=== PATIENT | female | born 1945 | race Caucasian/White ===

== ENCOUNTER 2016-09-06 10:16 | Emergency (ER) | payer MEDICARE ==
[2016-09-06] MEDS ORDERED: cefTRIAXone\\ROCEPHIN 1 GM VIAL ONE (11:08)
[2016-09-06] MEDS ORDERED: Sodium Chloride 0.9% 250 ML 250 ML ONE (11:09)
[2016-09-06] MEDS ORDERED: Azithromycin 500 MG VIAL ONE (11:09)
[2016-09-06] MEDS ORDERED: Sodium Chloride 0.9% 0 ML ONE (11:09)
[2016-09-06] MEDS ORDERED: Sodium Chloride 0.9% 100 ML ONE (11:10)
[2016-09-06 11:14] LABS: #Basophils 0.1 thou/uL (0.0-0.2); #Neutrophils 13.7 thou/uL (1.40-6.50); %Basophils 0.4 % (0.0-1.0); %Eosinophils 0.1 % (0.0-10.0); %Monocytes 5.8 % (0.0-10.0); Hematocrit 44.6 % (36.0-47.0); Red Blood Cell (RBC) Count 4.97 mill/uL (4.20-5.40); White Blood Cell (WBC) Count 16.8 thou/uL (4.8-10.8)
--- NOTE | 2016-09-06 11:16 | RAD ---
RADIOGRAPH CHEST 1 VIEW: Date: 09-06-16 Time: 10:46 a.m. HISTORY: 72-year-old female with acute dyspnea, worsening in the last two days. COMPARISON: None available. FINDINGS: There is increased attenuation involving the lower third to lower half of the right lung, especially laterally. Elsewhere, interstitial markings are diffusely prominent bilaterally. No cardiomegaly. No pneumothorax. Severe diffuse osteopenia. No mediastinal widening. Calcification of aortic ar ch. IMPRESSION: 1. Possible infiltrate in right lower lung zone. Recommend PA and lateral views for confirmation. 2. Diffuse severe osteopenia. 3. Atherosclerosis of thoracic aorta. JN POS: JUANJOSE
[2016-09-06 11:19] LABS: ALT (SGPT) 20 U/L (0-55); AST (SGOT) 24 U/L (5-34); Alkaline Phosphatase 119 U/L (40-150); Anion Gap 18 mmol/L (10-20); BUN (Urea Nitrogen) 13 mg/dL (9.8-20.1); Bilirubin, Total 0.4 mg/dL (0.2-1.2); CK (CPK) 113 U/L (29-168); Calc. Creatinine Clearance 0 mL/min (70-130); Calcium 9.4 mg/dL (7.8-10.44); Carbon Dioxide 22 mmol/L (23-31); Chloride 105 mmol/L (98-107); Estimated GFR-MDRD 80; Globulin 4.4 g/dL (2.4-3.5); Protein, Total 7.9 g/dL (5.8-8.1)
[2016-09-06 11:22] LABS: Troponin I 0.021 ng/mL (< 0.028)
[2016-09-06] MEDS ORDERED: Sodium Chloride 0.9% 1,000 ML ONE (11:26)
[2016-09-06] MEDS ORDERED: Potassium Chloride 10 MEQ/100 ML PREMIX BAG ONE (12:06)
[2016-09-06] MEDS ORDERED: Albuterol Sulfate 2.5 mg/0.5 ml Neb ONE (12:49)
--- NOTE | 2016-09-06 12:51 | CT ---
EXAM: CT ANGIOGRAM OF THE CHEST 09/06/16 HISTORY: Dyspnea on exertion. Low O2 saturation x2 to 3 days. History of breast cancer. COMPARISON: None TECHNIQUE: CT angiogram of the chest is performed in the axial plane. Sagittal and coronal reformatted images a s well as bilateral oblique three dimensional maximum intensity projections. FINDINGS: Limited evaluation of the lung parenchyma due to motion degradation. There are diffuse patchy ground glass opacities throughout the lung parenchyma. Focal linear opacification in the middle lobe likel y represents an area of subsegmental atelectasis or scar. No suspicious masses in the lung parenchym a. No pleural effusion or pneumothorax. Trachea and central bronchi are patent. The visualized upper abdominal solid organs are unremarkable. There is aneurysmal dilatation of an i ncompletely evaluated infrarenal abdominal aorta measuring 4.5 x 3.4 cm. There is focal outpouching along the lateral aspect of the aortic arch much distal to the left subclavian artery origin. There is adequate contrast opacification of the pulmonary arterial system to the level of the segmen aleena arteries. No filling defects to suggest thromboembolism. No mediastinal mass, lymphadenopathy or hematoma. Heart size is normal. No pericardial effusion. There are no osteoblastic or osteolytic lesions. Mild chronic compression fracture at L1 is suspecte d. IMPRESSION: 1. No evidence of pulmonary artery embolism to the level of the segmental arteries. Diffuse vicki und glass opacities throughout the lung parenchyma. Correlate for infectious, inflammatory process v ersus possible volume overload. 2. Scar or atelectasis in the middle lobe is favored. 3. Atherosclerosis and aneurysmal dilatation of the infrarenal abdominal aorta, incompletely ev aluated. Small focal outpouching of the aortic arch just beyond the left subclavian artery origins. Dedicated imaging of the aorta is recommended. POS: JUANJOSE
--- NOTE | 2016-09-06 13:29 | ERRECORD ---
[facility] EMERGENCY RECORD HPI SHORTNESS OF BREATH (10:36 JLOY) CHIEF COMPLAINT: Patient presents for evaluation of shortness of breath, Patient presents for evaluation of chest pain, Patient presents for evaluation of Pt with 1 week of shortness of breath. Also with chest pain on deep breaths. HISTORIAN: History provided by patient. LOCATION: Symptoms are generalized. QUALITY: Symptoms described as tightness. TIME COURSE: Gradual onset of symptoms, Symptoms are worsening, are constant. ASSOCIATED WITH: No associated chills, Associated with chest pain, Associated with diarrhea, Number of times: 1, Associated with dyspnea on exertion, No associated fever, No associated nausea, Associated with pleuritic chest pain, No associated upper respiratory infection, Associated with vomiting, Number of times: 1, for 3 days, currently resolved. EXACERBATED BY: Patient's condition exacerbated by nothing. RELIEVED BY: Patient's condition relieved by nothing. ROS CONSTITUTIONAL: Historian denies chills, denies fever. (10:37 JLOY) EYES: Historian denies eye pain, denies eye redness, denies eye discharge. (10:37 JLOY) ENT: Historian denies rhinorrhea, denies sore throat. (10:37 JLOY) CARDIOVASCULAR: Historian reports chest pain, reports dyspnea on exertion. (10:37 JLOY) RESPIRATORY: Historian denies cough, reports shortness of breath, denies sputum, denies wheezing. (10:37 JLOY) GI: Historian denies abdominal pain, reports diarrhea, denies nausea, reports vomiting. (10:37 JLOY) GENITOURINARY FEMALE: Historian denies dysuria, denies frequency, denies hematuria. (10:37 JLOY) MUSCULOSKELETAL: Historian denies back pain. (10:37 JLOY) SKIN: Historian denies rash, denies skin changes. (10:46 JLOY) NEUROLOGIC: Historian denies dizziness, denies headache. (10:37 JLOY) PAST MEDICAL HISTORY MEDICAL HISTORY: Notes: CVA x2, ovarian cancer (treated at [facility]), Past medical history includes history of hyperlipidemia, high cholesterol, Past medical history includes history of hypertension, which has been treated. (10:26 JNOL) PSYCHIATRIC HISTORY: No previous psychiatric history, no previous inpatient psychiatric admissions, no previous emergency department psychiatric evaluations, not currently under outpatient psychiatric treatment. (10:26 JNOL) &a-1R&a+25V*p+0X*i0610V*c202B*c15G*c2P*p-0X&a-25V&a+1R Name: Laurel Cruz : 1945 F71 MedRec: [id number] AcctNum: [id number] Prepared: SunSep 06, 2016 13:44 by Interface Page 1 of 4 pMD [facility] EMERGENCY RECORD SOCIAL HISTORY: Patient denies alcohol use, Patient denies drug use, Patient currently uses tobacco, Lives at home, with family. (10:26 JNOL) NOTES: Nursing records reviewed, Agree with nursing records. (10:38 JLOY) KNOWN ALLERGIES No Known Drug Allergies CURRENT MEDICATIONS pravastatin: TABLET : Strength - 10 mg : ORAL Patient Dose: unk mg Oral once a day. (10:27 JNOL) Plavix: TABLET : Strength - 300 mg : ORAL Patient Dose: unk mg Oral once a day. (10:28 JNOL) meTOPROLOL succinate: TABLET, EXTENDED RELEASE 24 HR : Strength - 100 mg : ORAL Patient Dose: unk mg Oral once a day. (10:28 JNOL) VITAL SIGNS VITAL SIGNS: BP: 160/90, Pulse: 105, Resp: 32 (Mild Distress), Pain: 0, O2 sat: 87 on Room Air, Time: 09/06/2016 10:22. (10:22 JNOL) O2 sat: 95 on 2 lpm, Time: 09/06/2016 10:26. (10:26 JNOL) Pulse: 95, Resp: 26, Pain: 0, O2 sat: 95 on 2L Oxygen, Time: 09/06/2016 10:28. (10:28 JNOL) BP: 114/77, Pulse: 94, Resp: 26, Temp: 98.3 (Oral), Pain: 2, O2 sat: 93 on 3L Oxygen, Time: 09/06/2016 11:05. (11:05 JNOL) BP: 132/78, Pulse: 97, Resp: 26, Pain: 2, O2 sat: 95 on 3L Oxygen, Time: 09/06/2016 11:34. (11:34 JNOL) BP: 166/77, Pulse: 86, Resp: 24, Pain: 2, O2 sat: 100 on Non Rebreather, Time: 09/06/2016 12:20. (12:20 JNOL) BP: 178/95, Pulse: 111, Resp: 25, Pain: 2, O2 sat: 94 on 3L Oxygen, Time: 09/06/2016 12:44. (12:44 JNOL) BP: 157/85, Pulse: 102, Resp: 26, Pain: 2, O2 sat: 98 on 3L Oxygen, Time: 09/06/2016 13:07. (13:07 JNOL) BP: 141/87, Pulse: 112, Resp: 26, Temp: 98.5 (Oral), Pain: 2, O2 sat: 93 on 3L Oxygen, Time: 09/06/2016 13:39. (13:39 JNOL) PHYSICAL EXAM (10:37 JLOY) CONSTITUTIONAL: Vital Signs Reviewed, Patient appears non toxic, Patient alert and oriented to person, place and time. EYES: Eye exam included findings of eyelids normal to inspection, Pupils equally round and reactive to light, Conjunctiva normal. ENT: Pharynx exam normal, Uvula exam normal, Tonsil exam normal, Mouth exam normal, mucous membranes moist. NECK: Neck exam included findings of normal range of motion, Trachea midline, no jugular venous distention, no cervical adenopathy. RESPIRATORY CHEST: Respiratory exam included findings &a-1R&a+25V*p+0X*n4583R*c202B*c15G*c2P*p-0X&a-25V&a+1R Name: Laurel Cruz : 1945 F71 MedRec: [id number] AcctNum: [id number] Prepared: SunSep 06, 2016 13:44 by Interface Page 2 of 4 pMD [facility] EMERGENCY RECORD of, mild respiratory distress, Rales present, to the right upper lobe, to the right middle lobe, to the right lower lobe, Breath sounds diminished, to the right upper lobe, to the right middle lobe, to the right lower lobe. CARDIOVASCULAR: Cardiovascular exam included findings of heart rate regular rate and rhythm, Heart sounds normal. ABDOMEN FEMALE: Abdominal exam included findings of abdomen nontender, Bowel sounds normal. BACK: Back exam included findings of normal inspection. UPPER EXTREMITY: Upper extremity exam included findings of inspection normal, Radial pulse normal, no cyanosis, no clubbing, no edema. LOWER EXTREMITY: Lower extremity exam included findings of inspection normal, no edema, no calf tenderness. NEURO: Figueroa coma scale 15, Neuro exam findings include patient oriented to person, place and time, Speech normal. SKIN: Skin exam included findings of skin warm, dry, and normal in color, no rash. PSYCHIATRIC: Normal affect. MEDICATION ADMINISTRATION SUMMARY Drug Name: albuterol sulfate inhalation, Dose Ordered: 2.5 mg, Route: Nebulize, Status: Given, Time: 12:52 09/06/2016, Drug Name: potassium chloride intravenous, Dose Ordered: 10 mEq, Route: IV Piggy Back, Status: Given, Time: 12:18 09/06/2016, Drug Name: azithromycin intravenous, Dose Ordered: 500 mg, Route: IV Piggy Back, Status: Given, Time: 11:48 09/06/2016, Drug Name: *sodium chloride 0.9 % intravenous, Dose Ordered: 150 mL/hr, Route: IV Fluid Infusion, Status: Given, Time: 11:33 09/06/2016, Drug Name: cefTRIAXone injection, Dose Ordered: 1 g, Route: IV Piggy Back, Status: Given, Time: 11:17 09/06/2016, Drug Name: *DuoNeb, Dose Ordered: 3 mL, Route: Nebulize, Status: Given, Time: 10:40 09/06/2016, *Additional information available in notes, Detailed record available in Medication Service section. DOCTOR NOTES RE-EVALUATION: The patient's condition is unchanged, No change s/p 2 breathing treatments. (13:23 [facility]) TEXT: Dr. Cheatham accepted the transfer to [facility] ER. (13:20 [facility]) PROBLEM LIST No recorded problems DIAGNOSIS (13:21 [facility]) FINAL: PRIMARY: Pneumonia, ADDITIONAL: Abdominal aortic aneurysm (AAA), Hypokalemia. &a-1R&a+25V*p+0X*w8717P*c202B*c15G*c2P*p-0X&a-25V&a+1R Name: Laurel Cruz : 1945 F71 MedRec: [id number] AcctNum: [id number] Prepared: SunSep 06, 2016 13:44 by Interface Page 3 of 4 pMD [facility] EMERGENCY RECORD PRESCRIPTION No recorded prescriptions DISPOSITION PATIENT: Disposition Type: Transfer, Disposition: Transfer to [facility]. (13:20 YAS) Patient left the department. (13:41 QUIQUE) Lee: YAS=MD Kobi, Rufus LEI=SHANE Roland, Randa &a-1R&a+25V*p+0X*[id number]*c202B*c15G*c2P*p-0X&a-25V&a+1R Name: Nancy Laurel : 1945 F71 MedRec: [id number] AcctNum: [id number] Prepared: SunSep 06, 2016 13:44 by Interface Page 4 of 4 pMD MTDD
--- NOTE | 2016-09-06 13:33 | PICIS ---
[facility] EMERGENCY RECORD TRIAGE (10:23 JNOL) TRIAGE NOTES: Patient reports increased difficulty breathing over last several days. (10:23 JNOL) PATIENT: NAME: Laurel Cruz, GENDER: female, TIME OF GREET: SunSep 06, 2016 10:21, ECODE BILLING MAP: [facility], Zip Code: [address], KG WEIGHT: 58.97 (est.), PHONE: , , , PERSON ID: [id number]. (10:23 JNOL) AGE: 71, : Sun1945. (11:27) COMPLAINT: DIFFICULTY BREATHING. (10:23 JNOL) ADMISSION: URGENCY: 2 Emergent, ADMISSION SOURCE: Home, TRANSPORT: Walk-in, BED: ER -02. (10:23 JNOL) SIRS SCORING: Heart Rate 55-109 (0), Temp range 96.8-101.1 (0), respiratory rate 12-24 (0), Mental Status altered: no (0). (10:26 JNOL) TRIAGE SCREENING: Patient denies suicidal ideation, Patient denies presence of domestic violence. (10:26 JNOL) PROVIDERS: TRIAGE NURSE: Randa Roland RN. (10:23 JNOL) VITAL SIGNS: BP 160/90, Pulse 105, Resp 32, (Mild Distress), Pain 0, O2 Sat 87, on Room Air, Time 09/06/2016 10:22. (10:22 JNOL) KNOWN ALLERGIES No Known Drug Allergies CURRENT MEDICATIONS pravastatin: TABLET : Strength - 10 mg : ORAL Patient Dose: unk mg Oral once a day. (10:27 JNOL) Plavix: TABLET : Strength - 300 mg : ORAL Patient Dose: unk mg Oral once a day. (10:28 JNOL) meTOPROLOL succinate: TABLET, EXTENDED RELEASE 24 HR : Strength - 100 mg : ORAL Patient Dose: unk mg Oral once a day. (10:28 JNOL) VITAL SIGNS VITAL SIGNS: BP: 160/90, Pulse: 105, Resp: 32 (Mild Distress), Pain: 0, O2 sat: 87 on Room Air, Time: 09/06/2016 10:22. (10:22 JNOL) O2 sat: 95 on 2 lpm, Time: 09/06/2016 10:26. (10:26 JNOL) Pulse: 95, Resp: 26, Pain: 0, O2 sat: 95 on 2L Oxygen, Time: 09/06/2016 10:28. (10:28 JNOL) BP: 114/77, Pulse: 94, Resp: 26, Temp: 98.3 (Oral), Pain: 2, O2 sat: 93 on 3L Oxygen, Time: 09/06/2016 11:05. (11:05 JNOL) BP: 132/78, Pulse: 97, Resp: 26, Pain: 2, O2 sat: 95 on 3L Oxygen, Time: 09/06/2016 11:34. (11:34 JNOL) BP: 166/77, Pulse: 86, Resp: 24, Pain: 2, O2 sat: 100 on Non Rebreather, Time: 09/06/2016 12:20. (12:20 JNOL) BP: 178/95, Pulse: 111, Resp: 25, Pain: 2, O2 sat: 94 on 3L Oxygen, Time: 09/06/2016 12:44. (12:44 JNOL) BP: 157/85, Pulse: 102, Resp: 26, Pain: 2, O2 sat: 98 on 3L Oxygen, Time: &a-1R&a+25V*p+0X*v0964U*c202B*c15G*c2P*p-0X&a-25V&a+1R Name: Laurel Cruz : 1945 F71 MedRec: [id number] AcctNum: [id number] Prepared: SunSep 06, 2016 13:50 by Interface Page 1 of 16 pMD [facility] EMERGENCY RECORD 09/06/2016 13:07. (13:07 JNOL) BP: 141/87, Pulse: 112, Resp: 26, Temp: 98.5 (Oral), Pain: 2, O2 sat: 93 on 3L Oxygen, Time: 09/06/2016 13:39. (13:39 JNOL) NURSING ASSESSMENT: FALL RISK (11:04 JNOL) FALL RISK: Fall risk assessment findings include: no history of falls (0), No bed rest greater than 2 days (0), No use of level of consciousness altering agents with mentation or cognitive changes (0), No change in blood pressure (0), No sensory deficits (0), No impaired mobility (0), No neurologic diagnosis (0), No elimination problems (0), No confusion (0), Total score 0, No risk for fall. NURSING ASSESSMENT: RESPIRATORY /CHEST (10:29 JNOL) CONSTITUTIONAL: Patient arrives ambulatory, Gait steady, History obtained from patient, Patient appears, anxious, in respiratory distress, generally ill, restless, Patient cooperative, Patient alert, Oriented to person, place and time, Skin warm, Skin dry, Skin normal in color, Mucous membranes pink, Mucous membranes moist, Patient is well-groomed. RESPIRATORY/CHEST: Lungs auscultated, Breath sounds diminished, to bilateral lower lobes, Breath sounds with wheezing, scattered, Respiratory assessment findings include respiratory effort, tachypneic, Respirations regular, Conversing normally, Neck and chest exam findings include trachea midline, Chest expansion equal, Chest movement symmetrical, Signs of distress, no retractions noted, no cyanosis, no jugular vein distension, no tenderness to palpation, no crepitus noted, no subcutaneous emphysema noted, no deformity noted, Associated with cough, non-productive, no associated fever, no associated fume exposure. ENT: Ear assessment findings include ear normal to inspection, Nasal assessment findings include nose normal to inspection, Sinuses normal, Nasal mucosa normal, Mouth and throat assessment findings include mouth inspection normal, Uvula normal, Tonsils normal, Mucous membranes pink, and moist, Able to swallow, Speech normal. NOTES: Patient tolerated procedure well. NURSING ASSESSMENT: SKIN (11:04 JNOL) SKIN: Skin assessment findings include skin warm, Skin dry, Skin normal in color, Notes: blancheable redness to buttocks. left arm slightly contracted from previous stroke. SERA SCALE: (4) Sensory perception has no impairment, (3) Skin is occasionally moist, (3) Patient walks occasionally, (3) Slightly limited mobility, (3) Adequate nutrition, (3) Patient has no apparent problem moving, Sera Risk Total: 19. &a-1R&a+25V*p+0X*b1832J*c202B*c15G*c2P*p-0X&a-25V&a+1R Name: Laurel Cruz : 1945 F71 MedRec: [id number] AcctNum: [id number] Prepared: SunSep 06, 2016 13:50 by Interface Page 2 of 16 pMD [facility] EMERGENCY RECORD NURSING PROCEDURE: BEDSIDE RADIOLOGY (11:03 JNOL) BEDSIDE RADIOLOGY: Portable chest x-ray performed. NURSING PROCEDURE: BEDSIDE SIRS TESTING (11:19 JNOL) SCORES: Heart Rate 55-109 (0), Temp range 96.8-101.1 (0), respiratory rate 12-24 (0), Latest WBC 15-19.9 (1), Mental Status altered: no (0), Total SIRS Score 1. NURSING PROCEDURE: BELONGINGS (13:39 JNOL) PATIENT IDENTIFER: Patient actively involved in identification process, Patient's identity verified by patient stating name, Patient's identity verified by patient stating date, Patient's identity verified by hospital ID bracelet. BELONGINGS: Belongings and valuables with patient at time of admission include:, robe, shirt, purse, Notes: Robe, shirt, and purse taken with upon patient leaving ER. NOTES: Patient tolerated procedure well. NURSING PROCEDURE: TAG CLERK (10:26 JNOL) TAG CLERK: Patient placed on security solutions engineer, Patient placed on non-invasive blood pressure monitor, Patient placed on continuous pulse oximetry. NURSING PROCEDURE: COMMUNICATIONS (12:50 BDON) COMMUNICATIONS: Notes: Spoke with Transfer Center, they spoke with [facility], have not gotten approval. NURSING PROCEDURE: EKG CHART (10:38 JNOL) EK lead EKG performed on the left chest, done by SHANE Tolentino, first EKG. FOLLOW-UP: After procedure, EKG for interpretation given to Dr. Peace. NURSING PROCEDURE: ENT (11:32 JNOL) ENT: ENT care indicated for specimen collection, Nasal swab collected, labeled in the presence of the patient and sent to lab for testing of, influenza A, influenza B, collected by SHANE Catalan. NURSING PROCEDURE: IV IV SITE 1: IV established, to the left wrist, using a 20 gauge catheter, in one attempt, IV site prepped with CHLORAPREP, Saline lock established, Flushed with normal saline (mls): 10, Labs drawn at time of placement, labeled in the presence of the patient and sent to lab, Blood cultures drawn at time of placement, labeled in the presence of the patient and sent to lab. (11:02 JNOL) IV SITE 2: IV established, to the left antecubital, using an 18 gauge catheter, in one attempt, Saline lock established, Flushed with normal saline (mls): 10. (11:41 JNOL) NURSING PROCEDURE: LAB DRAW (11:02 JNOL) &a-1R&a+25V*p+0X*g3557M*c202B*c15G*c2P*p-0X&a-25V&a+1R Name: Laurel Cruz : 1945 F71 MedRec: [id number] AcctNum: [id number] Prepared: SunSep 06, 2016 13:50 by Interface Page 3 of 16 pMD [facility] EMERGENCY RECORD LAB DRAW: Subsequent lab draw performed, by venipuncture, from right hand, in one attempt, Blood cultures labeled in the presence of the patient and sent to lab. NURSING PROCEDURE: NURSE NOTES NURSES NOTES: Notes: Patient clothing removed, patient placed in gown. Family at bedside. (10:27 JNOL) Notes: ERMD at bedside. (10:29 JNOL) Notes: ERMD return to bedside to discuss findings and plan of care. (11:07 JNOL) Assistance offered to patient. (12:59 BDON) NURSING PROCEDURE: OXYGEN THERAPY OXYGEN THERAPY: Prior to procedure, breath sounds diminished, to bilateral lower lobes, Prior to procedure, breath sounds with wheezing, scattered, Oxygen saturation 87%, 2L oxygen given, via nasal cannula applied, Applied by SHANE Santos, via nasal cannula. (10:26 JNOL) FOLLOW-UP: Notes: Patient placed on NRB at 12 lpm due to continued dyspnea and feelings of not being able to breathe. This was done with ERMD approval. (12:00 JNOL) Notes: Patient not tolerating mask per ERMD, moved back to 3 lpm NC. (12:36 JNOL) Notes: Oxygen increased to 3 lpm by ERMD. (11:05 JNOL) VITAL SIGNS: O2 sat: 95, on: 2 lpm. (10:26 JNOL) NURSING PROCEDURE: RESPIRATORY INTERVENTIONS RESPIRATORY INTERVENTIONS: Respiratory interventions indicated for respiratory distress, Pre-intervention breath sounds diminished, to bilateral lower lobes, Pre-intervention breath sounds with wheezing, scattered, Pre-intervention oxygen saturation 93%, by adult/pediatric oxisensor, Patient given ALBUTEROL with ATROVENT, Single dose nebulizer, Dose: 3 ml. (11:06 JNOL) FOLLOW-UP: After procedure, oxygen saturation 93%, on 3L. (11:07 JNOL) NURSING PROCEDURE: TRANSFER (13:37 JNOL) TRANSFER: Reason for transfer need for specialized care, Diagnosis: PNA, Abdominal anuerysm,elevated D-dimer, Accepting [facility]: [facility], Accepting physician: Chaparrita, Referring physician: Kobi, Transported by non-urgent ambulance, accompanied by emergency medical services personnel, Report called to receiving facility, SHANE Garces, Provided opportunity to answer questions, Going to ER., Summary of Care printed, Copy of patient record prepared for receiving facility, Copy of diagnostic studies, Status of patient's valuables documented on chart, Patient consent for transfer signed, Family member contacted, at bedside, will follow EMs to ER. &a-1R&a+25V*p+0X*t0062L*c202B*c15G*c2P*p-0X&a-25V&a+1R Name: Laurel Cruz : 1945 F71 MedRec: [id number] AcctNum: [id number] Prepared: SunSep 06, 2016 13:50 by Interface Page 4 of 16 [facility] EMERGENCY RECORD NURSING PROCEDURE: TRANSPORT TO TESTS PATIENT IDENTIFIER: Patient actively involved in identification process, Patient's identity verified by patient stating name, Patient's identity verified by patient stating date, Patient's identity verified by hospital ID bracelet. (11:57 JNOL) TRANSPORT TO TESTS: Transport indicated to facilitate diagnosis, Patient transported to CT scan, via cart, Accompanied by x-ray tube test technician. (11:57 JNOL) FOLLOW-UP: After procedure, patient returned to emergency department. (12:06 JNOL) ORDER DETAILS Order Name: B type Natriuretic Peptide, Status: Active, Time: 10:35 09/06/2016, User: YAS, - Ordered for: MD Peace Joshua, - Entered by: MD Peace Joshua - SunSep 06, 2016 10:35, - Quantity: 1, Order Name: TAG CLERK ED, Status: Done, Time: 10:39 09/06/2016, User: QUIQUE, - Ordered for: MD Peace Joshua, - Entered by: MD Peace Joshua - SunSep 06, 2016 10:35, - Quantity: 1, Order Name: Cardiac Profile w/CKMB & Troponin - I, Status: Active, Time: 10:35 09/06/2016, User: YAS, - Ordered for: MD Peace Joshua, - Entered by: MD Peace Joshua - SunSep 06, 2016 10:35, - Quantity: 1, Order Name: CBC with Differential, Status: Active, Time: 10:35 09/06/2016, User: YAS, - Ordered for: MD Peace Joshua, - Entered by: MD Peace Joshua - SunSep 06, 2016 10:35, - Quantity: 1, Order Name: CK (CPK), Status: Active, Time: 10:35 09/06/2016, User: YAS, - Ordered for: MD Peace Joshua, - Entered by: MD Peace Joshua - SunSep 06, 2016 10:35, - Quantity: 1, Order Name: Comprehensive Metabolic Panel, Status: Active, Time: 10:35 09/06/2016, User: YAS, - Ordered for: MD Peace Joshua, - Entered by: MD Peace Joshua - [facility] Sep 06, 2016 10:35, - Quantity: 1, Order Name: CTA Angio Chest W WO Con(PE Protocol), Status: Active, Time: 11:25 09/06/2016, User: YAS, - Ordered for: MD Peace Joshua, - Entered by: MD Peace Joshua - SunSep 06, 2016 11:25, - Quantity: 1, Order Name: Culture, Blood, Status: Active, Time: 10:35 09/06/2016, User: YAS, &a-1R&a+25V*p+0X*b7087I*c202B*c15G*c2P*p-0X&a-25V&a+1R Name: Laurel Cruz : 1945 F71 MedRec: [id number] AcctNum: [id number] Prepared: SunSep 06, 2016 13:50 by Interface Page 5 of 16 pMD [facility] EMERGENCY RECORD - Ordered for: MD Peace Joshua, - Entered by: MD Peace Joshua - SunSep 06, 2016 10:35, - Quantity: 1, Order Name: D-Dimer (Quantitative), Status: Active, Time: 10:35 09/06/2016, User: YAS, - Ordered for: MD Peace Joshua, - Entered by: MD Peace Joshua - SunSep 06, 2016 10:35, - Quantity: 1, Order Name: EKG 12 Lead in Emergency Room, Status: Active, Time: 10:35 09/06/2016, User: YAS, - Ordered for: MD Peace Joshua, - Entered by: MD Peace Joshua - SunSep 06, 2016 10:35, - Quantity: 1, Order Name: ERRT * Smal Vol Neb Initial Trmt, Status: Active, Time: 10:35 09/06/2016, User: YAS, - Ordered for: MD Peace Joshua, - Entered by: MD Peace Joshua - SunSep 06, 2016 10:35, - Quantity: 1, Order Name: ERRT Oxygen Usage ER, Status: Active, Time: 10:35 09/06/2016, User: YAS, - Ordered for: MD Peace Joshua, - Entered by: MD Peace Joshua - SunSep 06, 2016 10:35, - Quantity: 1, Order Name: ERRT Pulse Oximeter ER, Status: Active, Time: 10:35 09/06/2016, User: YAS, - Ordered for: MD Peace Joshua, - Entered by: MD Peace Joshua - SunSep 06, 2016 10:35, - Quantity: 1, Order Name: Influenza A&B Ag Screen, Status: Active, Time: 10:35 09/06/2016, User: YAS, - Ordered for: MD Peace Joshua, - Entered by: MD Peace Joshua - SunSep 06, 2016 10:35, - Quantity: 1, Order Name: SALINE LOCK, Status: Done, Time: 10:56 09/06/2016, User: SHARON, - Ordered for: MD Peace Joshua, - Entered by: MD Peace Joshua - SunSep 06, 2016 10:35, - Quantity: 1, Order Name: XR Chest 1 View Portable, Status: Active, Time: 10:35 09/06/2016, User: YAS, - Ordered for: MD Peace Joshua, - Entered by: MD Peace Joshua - SunSep 06, 2016 10:35, - Quantity: 1. MEDICATION ADMINISTRATION SUMMARY Drug Name: albuterol sulfate inhalation, Dose Ordered: 2.5 mg, Route: Nebulize, Status: Given, Time: 12:52 09/06/2016, Drug Name: potassium chloride intravenous, Dose Ordered: 10 mEq, Route: IV Piggy Back, Status: Given, Time: 12:18 09/06/2016, &a-1R&a+25V*p+0X*d4880J*c202B*c15G*c2P*p-0X&a-25V&a+1R Name: Laurel Cruz : 1945 F71 MedRec: [id number] AcctNum: [id number] Prepared: SunSep 06, 2016 13:50 by Interface Page 6 of 16 D [facility] EMERGENCY RECORD Drug Name: azithromycin intravenous, Dose Ordered: 500 mg, Route: IV Piggy Back, Status: Given, Time: 11:48 09/06/2016, Drug Name: *sodium chloride 0.9 % intravenous, Dose Ordered: 150 mL/hr, Route: IV Fluid Infusion, Status: Given, Time: 11:33 09/06/2016, Drug Name: cefTRIAXone injection, Dose Ordered: 1 g, Route: IV Piggy Back, Status: Given, Time: 11:17 09/06/2016, Drug Name: *DuoNeb, Dose Ordered: 3 mL, Route: Nebulize, Status: Given, Time: 10:40 09/06/2016, *Additional information available in notes, Detailed record available in Medication Service section. MEDICATION SERVICE albuterol sulfate inhalation: Order: albuterol sulfate inhalation (albuterol sulfate) - Dose: 2.5 mg : Nebulize Ordered by: Rufus Peace MD Entered by: Rufus Peace MD SunSep 06, 2016 12:50 Documented as given by: Randa Roland RN SunSep 06, 2016 12:52 Patient, Medication, Dose, Route and Time verified prior to administration. Amount given: 2.5 mg, Site: Medication administered via Hand-held nebulizer, With oxygen, Correct patient, time, route, dose and medication confirmed prior to administration, Patient advised of actions and side-effects prior to administration, Allergies confirmed and medications reviewed prior to administration, Patient in position of comfort, Side rails up, Cart in lowest position, Family at bedside. : Follow Up : No signs or symptoms of allergic reaction noted, Decreased respiratory rate, Decreased respiratory effort. (13:07 JNOL) azithromycin intravenous: Order: azithromycin intravenous (azithromycin) - Dose: 500 mg : IV Piggy Back Ordered by: Rufus Peace MD Entered by: Rufus Peace MD SunSep 06, 2016 11:06 , Acknowledged by: Randa Roland RN SunSep 06, 2016 11:08 Documented as given by: Randa Roland RN SunSep 06, 2016 11:48 Patient, Medication, Dose, Route and Time verified prior to administration. Amount given: 500 mg, IV SITE #1 IVPB or drip, subsequent infusion, IVPB mixed in: 250ml, Fluid: 0.9NS, on an IV pump, Awake and alert- acceptable, Catheter placement confirmed via flush prior to administration, IV site without signs or symptoms of infiltration during medication administration, No swelling during administration, No drainage during administration, IV flushed after administration, Correct patient, time, route, dose and medication confirmed prior to administration, Patient advised of actions and side-effects prior to administration, Allergies confirmed and medications reviewed prior to administration, Patient in position of comfort, Side rails up, Cart in lowest position, Family at bedside. : Follow Up : No signs or symptoms of allergic reaction noted, Decreased respiratory rate, Decreased respiratory effort, Advised not to ambulate without assistance, Patient in &a-1R&a+25V*p+0X*l3196Z*c202B*c15G*c2P*p-0X&a-25V&a+1R Name: Laurel Cruz : 1945 F71 MedRec: [id number] AcctNum: [id number] Prepared: SunSep 06, 2016 13:50 by Interface Page 7 of 16 pMD [facility] EMERGENCY RECORD position of comfort, Side rails up, Cart in lowest position, Family at bedside. (13:02 JNOL) cefTRIAXone injection: Order: cefTRIAXone injection (ceftriaxone sodium) - Dose: 1 g : IV Piggy Back Ordered by: Rufus Peace MD Entered by: Rufus Peace MD SunSep 06, 2016 11:06 , Acknowledged by: Randa Roland RN SunSep 06, 2016 11:08 Documented as given by: Randa Roland RN SunSep 06, 2016 11:17 Patient, Medication, Dose, Route and Time verified prior to administration. Amount given: 1 g, IV SITE #1 IVPB or drip, initial infusion, IVPB mixed in: 100ml, Fluid: 0.9NS, on an IV pump, Awake and alert- acceptable, Catheter placement confirmed via flush prior to administration, IV site without signs or symptoms of infiltration during medication administration, No swelling during administration, No drainage during administration, IV flushed after administration, Correct patient, time, route, dose and medication confirmed prior to administration, Patient advised of actions and side-effects prior to administration, Allergies confirmed and medications reviewed prior to administration, Patient in position of comfort, Side rails up, Cart in lowest position, Family at bedside. : Follow Up : No signs or symptoms of allergic reaction noted, _IV SITE #1:_, Medication infusion discontinued, on SunSep 06, 2016 11:48, 35 minutes, ., Total amount infused: 1 g, IV Line flushed after administration. (11:48 JNOL) DuoNeb: Order: DuoNeb (ipratropium bromide/albuterol sulfate) - Dose: 3 mL : Nebulize Notes: (0.5mg Ipratropium Howe/3mg Albuterol Sulfate = 3ml) Ordered by: Rufus Peace MD Entered by: Rufus Peace MD SunSep 06, 2016 10:35 , Acknowledged by: Danielle Evans SunSep 06, 2016 10:38 Documented as given by: Danielle Evans SunSep 06, 2016 10:40 Patient, Medication, Dose, Route and Time verified prior to administration. Amount given: 3ml, Amount wasted: 0, With oxygen, Pre-administration assessment shows O2 saturation reading 93%, Correct patient, time, route, dose and medication confirmed prior to administration, Patient advised of actions and side-effects prior to administration, Allergies confirmed and medications reviewed prior to administration, Patient in position of comfort, Side rails up, Cart in lowest position, Family at bedside, Call light in reach. : Follow Up : No signs or symptoms of allergic reaction noted, No change in symptoms, No change in respiratory rate, No change in respiratory effort. (12:21 JNOL) potassium chloride intravenous: Order: potassium chloride intravenous (potassium chloride) - Dose: 10 mEq : IV Piggy Back Ordered by: Rufus Peace MD Entered by: Rufus Peace MD SunSep 06, 2016 11:46 , Acknowledged by: Randa Roland RN SunSep 06, 2016 11:47 &a-1R&a+25V*p+0X*o1322C*c202B*c15G*c2P*p-0X&a-25V&a+1R Name: Laurel Cruz : 1945 F71 MedRec: [id number] AcctNum: [id number] Prepared: SunSep 06, 2016 13:50 by Interface Page 8 of 16 D [facility] EMERGENCY RECORD Documented as given by: Randa Roland RN SunSep 06, 2016 12:18 Patient, Medication, Dose, Route and Time verified prior to administration. IV SITE #2, IVPB or drip, initial infusion, Premixed, on an IV pump, Awake and alert- acceptable, Catheter placement confirmed via flush prior to administration, IV site without signs or symptoms of infiltration during medication administration, No swelling during administration, No drainage during administration, IV flushed after administration, Correct patient, time, route, dose and medication confirmed prior to administration, Patient advised of actions and side-effects prior to administration, Allergies confirmed and medications reviewed prior to administration, Patient in position of comfort, Side rails up, Cart in lowest position, Family at bedside. : Follow Up : No signs or symptoms of allergic reaction noted, _IV SITE #2:_, Medication infusion discontinued, on SunSep 06, 2016 13:16, ., Total amount infused: 10 mEq, IV Line flushed after administration. (13:16 JNOL) sodium chloride 0.9 % intravenous: Order: sodium chloride 0.9 % intravenous (0.9 % sodium chloride) - Dose: 150 mL/hr : IV Fluid Infusion Notes: (Bolus) Ordered by: Rufus Peace MD Entered by: Rufus Peace MD SunSep 06, 2016 11:25 Documented as given by: Alayna Perez RN SunSep 06, 2016 11:33 Patient, Medication, Dose, Route and Time verified prior to administration. Amount given: 150 ml /hr, IV SITE #1 IV fluids established for hydration, Patient in position of comfort, Side rails up, Cart in lowest position, Family at bedside. : Follow Up : No signs or symptoms of allergic reaction noted, _IV SITE #1:_, IV fluid infusion continued upon transfer from emergency department, on SunSep 06, 2016 13:40, Total fluid hydration time IV site 1 2 hours, 10 minutes, ., Total amount infused: 300 ml. (13:40 JNOL) HPI SHORTNESS OF BREATH (10:36 JLOY) CHIEF COMPLAINT: Patient presents for evaluation of shortness of breath, Patient presents for evaluation of chest pain, Patient presents for evaluation of Pt with 1 week of shortness of breath. Also with chest pain on deep breaths. HISTORIAN: History provided by patient. LOCATION: Symptoms are generalized. QUALITY: Symptoms described as tightness. TIME COURSE: Gradual onset of symptoms, Symptoms are worsening, are constant. ASSOCIATED WITH: No associated chills, Associated with chest pain, Associated with diarrhea, Number of times: 1, Associated with dyspnea on exertion, No associated fever, No associated nausea, Associated with pleuritic chest pain, No associated upper respiratory infection, Associated with &a-1R&a+25V*p+0X*n5367R*c202B*c15G*c2P*p-0X&a-25V&a+1R Name: Laurel Cruz : 1945 F71 MedRec: [id number] AcctNum: [id number] Prepared: Wed Sep 06, 2016 13:50 by Interface Page 9 of 16 pMD [facility] EMERGENCY RECORD vomiting, Number of times: 1, for 3 days, currently resolved. EXACERBATED BY: Patient's condition exacerbated by nothing. RELIEVED BY: Patient's condition relieved by nothing. ROS CONSTITUTIONAL: Historian denies chills, denies fever. (10:37 JLOY) EYES: Historian denies eye pain, denies eye redness, denies eye discharge. (10:37 JLOY) ENT: Historian denies rhinorrhea, denies sore throat. (10:37 JLOY) CARDIOVASCULAR: Historian reports chest pain, reports dyspnea on exertion. (10:37 JLOY) RESPIRATORY: Historian denies cough, reports shortness of breath, denies sputum, denies wheezing. (10:37 JLOY) GI: Historian denies abdominal pain, reports diarrhea, denies nausea, reports vomiting. (10:37 JLOY) GENITOURINARY FEMALE: Historian denies dysuria, denies frequency, denies hematuria. (10:37 JLOY) MUSCULOSKELETAL: Historian denies back pain. (10:37 JLOY) SKIN: Historian denies rash, denies skin changes. (10:46 JLOY) NEUROLOGIC: Historian denies dizziness, denies headache. (10:37 JLOY) PAST MEDICAL HISTORY MEDICAL HISTORY: Notes: CVA x2, ovarian cancer (treated at [facility]), Past medical history includes history of hyperlipidemia, high cholesterol, Past medical history includes history of hypertension, which has been treated. (10:26 JNOL) PSYCHIATRIC HISTORY: No previous psychiatric history, no previous inpatient psychiatric admissions, no previous emergency department psychiatric evaluations, not currently under outpatient psychiatric treatment. (10:26 JNOL) SOCIAL HISTORY: Patient denies alcohol use, Patient denies drug use, Patient currently uses tobacco, Lives at home, with family. (10:26 JNOL) NOTES: Nursing records reviewed, Agree with nursing records. (10:38 JLOY) PHYSICAL EXAM (10:37 JLOY) CONSTITUTIONAL: Vital Signs Reviewed, Patient appears non toxic, Patient alert and oriented to person, place and time. EYES: Eye exam included findings of eyelids normal to inspection, Pupils equally round and reactive to light, Conjunctiva normal. ENT: Pharynx exam normal, Uvula exam normal, Tonsil exam normal, Mouth exam normal, mucous membranes moist. NECK: Neck exam included findings of normal range of motion, Trachea midline, no jugular venous distention, no cervical &a-1R&a+25V*p+0X*c2502C*c202B*c15G*c2P*p-0X&a-25V&a+1R Name: Laurel Cruz : 1945 F71 MedRec: [id number] AcctNum: [id number] Prepared: SunSep 06, 2016 13:50 by Interface Page 10 of 16 pMD [facility] EMERGENCY RECORD adenopathy. RESPIRATORY CHEST: Respiratory exam included findings of, mild respiratory distress, Rales present, to the right upper lobe, to the right middle lobe, to the right lower lobe, Breath sounds diminished, to the right upper lobe, to the right middle lobe, to the right lower lobe. CARDIOVASCULAR: Cardiovascular exam included findings of heart rate regular rate and rhythm, Heart sounds normal. ABDOMEN FEMALE: Abdominal exam included findings of abdomen nontender, Bowel sounds normal. BACK: Back exam included findings of normal inspection. UPPER EXTREMITY: Upper extremity exam included findings of inspection normal, Radial pulse normal, no cyanosis, no clubbing, no edema. LOWER EXTREMITY: Lower extremity exam included findings of inspection normal, no edema, no calf tenderness. NEURO: Figueroa coma scale 15, Neuro exam findings include patient oriented to person, place and time, Speech normal. SKIN: Skin exam included findings of skin warm, dry, and normal in color, no rash. PSYCHIATRIC: Normal affect. EVENTS TRANSFER: Triage to Emergency Emergency Room -02. (SunSep 06, 2016 10:23 JNOL) Removed from Emergency Emergency Room -02. (13:41 JNOL) DOCTOR NOTES RE-EVALUATION: The patient's condition is unchanged, No change s/p 2 breathing treatments. (13:23 JLOY) TEXT: Dr. Cheatham accepted the transfer to [facility] ER. (13:20 JLOY) PROBLEM LIST No recorded problems DIAGNOSIS (13:21 JLOY) FINAL: PRIMARY: Pneumonia, ADDITIONAL: Abdominal aortic aneurysm (AAA), Hypokalemia. DISPOSITION PATIENT: Disposition Type: Transfer, Disposition: Transfer to [facility]. (13:20 JLOY) Patient left the department. (13:41 JNOL) PRESCRIPTION No recorded prescriptions IMAGING &a-1R&a+25V*p+0X*d7238R*c202B*c15G*c2P*p-0X&a-25V&a+1R Name: Laurel Cruz : 1945 F71 MedRec: [id number] AcctNum: [id number] Prepared: SunSep 06, 2016 13:50 by Interface Page 11 of 16 pMD [facility] EMERGENCY RECORD *EKG: Image captured from scanner. (13:30 IHAC) *MEMORANDUM OF TRANSFER: Image captured from scanner. (13:31 IHAC) *SUPPLY CHARGE SHEET: Image captured from scanner. (13:45 IHAC) CONSENTS: Image captured from scanner. (13:46 IHAC) ADMIN DIGITAL SIGNATURE: MD Peace Joshua. (13:21 [facility]) MD Peace Joshua. (13:24 JL) RESULTS RADIOLOGY: CTA Angio Chest W WO Con Observe DT: SunSep 06, 2016 11:27, CTATHX EXAM: CT ANGIOGRAM OF THE CHEST 09/06/16 HISTORY: Dyspnea on exertion. Low O2 saturation x2 to 3 days. History of breast cancer. COMPARISON: None TECHNIQUE: CT angiogram of the chest is performed in the axial plane. Sagittal and coronal reformatted images a s well as bilateral oblique three dimensional maximum intensity projections. FINDINGS: Limited evaluation of the lung parenchyma due to motion degradation. There are diffuse patchy ground glass opacities throughout the lung parenchyma. Focal linear opacification in the middle lobe likel y represents an area of subsegmental atelectasis or scar. No suspicious masses in the lung parenchym a. No pleural effusion or pneumothorax. Trachea and central bronchi are patent. The visualized upper abdominal solid organs are unremarkable. There is aneurysmal dilatation of an i ncompletely evaluated infrarenal abdominal aorta measuring 4.5 x 3.4 cm. There is focal outpouching along the lateral aspect of the aortic arch much distal to the left subclavian artery origin. There is adequate contrast opacification of the pulmonary arterial &a-1R&a+25V*p+0X*l6256K*c202B*c15G*c2P*p-0X&a-25V&a+1R Name: Laurel Cruz : 1945 F71 MedRec: [id number] AcctNum: [id number] Prepared: SunSep 06, 2016 13:50 by Interface Page 12 of 16 pMD [facility] EMERGENCY RECORD system to the level of the segmen aleena arteries. No filling defects to suggest thromboembolism. No mediastinal mass, lymphadenopathy or hematoma. Heart size is normal. No pericardial effusion. There are no osteoblastic or osteolytic lesions. Mild chronic compression fracture at L1 is suspecte d. IMPRESSION: 1. No evidence of pulmonary artery embolism to the level of the segmental arteries. Diffuse vicki und glass opacities throughout the lung parenchyma. Correlate for infectious, inflammatory process v ersus possible volume overload. 2. Scar or atelectasis in the middle lobe is favored. 3. Atherosclerosis and aneurysmal dilatation of the infrarenal abdominal aorta, incompletely ev aluated. Small focal outpouching of the aortic arch just beyond the left subclavian artery origins. Dedicated imaging of the aorta is recommended. POS: [facility] . (13:19 [facility]) LABORATORY: D-Dimer (Quantitative) Collection DT: SunSep 06, 2016 10:54, *D-Dimer Test 1.62 - H *mcg/mL, Range (0.27-0.43), * Reference Range Units: mcg/mL of fibrinogen equivalent, units(FEU) Based upon a retrospective study of [facility] patients in January 2006, a result of Less than 0.44 mcg/mL FEU is, predictive of the absence of a DVT or PE. . (11:33 [facility]) Cardiac Profile w/CKMB & TropI Collection DT: SunSep 06, 2016 10:54, CKMB 2.5 ng/mL, Range (0-6.6), Troponin I 0.021 ng/mL, Range (< 0.028), Reference Range , 0.00 - 0.028 ng/mL Negative 0.029 - 0.29 ng/mL , Indeterminate Greater or Equal to 0.3 ng/mL Strongly suggests [place] , . (11:33 JL) B type Natriuretic Peptide Collection DT: SunSep 06, 2016 10:54, B type Natriuretic Peptide 28.1 pg/mL, Range (0-100). (11:33 [facility]) CK (CPK) Collection DT: SunSep 06, 2016 10:54, CK (CPK) 113 U/L, Range (29-168). (11:33 [facility]) Comprehensive Metabolic Panel Collection DT: SunSep 06, 2016 10:54, Sodium 142 mmol/L, Range (136-145), &a-1R&a+25V*p+0X*o3864R*c202B*c15G*c2P*p-0X&a-25V&a+1R Name: Laurel Cruz : 1945 F71 MedRec: [id number] AcctNum: [id number] Prepared: SunSep 06, 2016 13:50 by Interface Page 13 of 16 pMD [facility] EMERGENCY RECORD Chloride 105 mmol/L, Range (98-107), *Carbon Dioxide 22 - L mmol/L, Range (23-31), Anion Gap 18 mmol/L, Range (10-20), BUN (Urea Nitrogen) 13 mg/dL, Range (9.8-20.1), Creatinine 0.72 mg/dL, Range (0.6-1.1), Estimated GFR-MDRD 80 , Reference Range for Estimated GFR: Greater than 90, mL/min/1.73 m2 NOTE: The MDRD equation has not been validated for use, with the elderly (over 70 years of age), women, patients with, serious comorbid condition or persons with extremes of body size, muscle, mass, or nutritional status. , *Glucose 131 - H mg/dL, Range (80-115), Calcium 9.4 mg/dL, Range (7.8-10.44), Bilirubin, Total 0.4 mg/dL, Range (0.2-1.2), Protein, Total 7.9 g/dL, Range (5.8-8.1), NOTE: Plasma values are generally 0.3 to 0.5 g/dL higher than serum values, due to the presence of fibrinogen. , Albumin 3.5 g/dL, Range (3.4-4.8), *Globulin 4.4 - H g/dL, Range (2.4-3.5), *Alb/Glob Ratio 0.8 - L g/dL, Range (1.2-2.2), Alkaline Phosphatase 119 U/L, Range (40-150), AST (SGOT) 24 U/L, Range (5-34), ALT (SGPT) 20 U/L, Range (0-55). (11:33 [facility]) CBC with Differential Collection DT: SunSep 06, 2016 10:54, *White Blood Cell (WBC) Count 16.8 - H thou/uL, Range (4.8-10.8), Red Blood Cell (RBC) Count 4.97 mill/uL, Range (4.20-5.40), Hemoglobin 14.2 g/dL, Range (12.0-16.0), Hematocrit 44.6 %, Range (36.0-47.0), Mean Corpuscular Volume 89.7 fl, Range (81.0-99.0), Mean Corpuscular Hemoglobin 28.5 pg, Range (27.0-31.0), *Mean Corpuscular HGB CONC 31.7 - L g/dL, Range (32.0-36.0), RBC Distribution Width 13.2 %, Range (11.5-14.5), Platelet Count 273 thou/uL, Range (130-400), Mean Platelet Volume 9.0 fL, Range (7.4-10.4), *%Neutrophils 81.7 - H %, Range (42.0-75.0), *%Lymphocytes 12.0 - L %, Range (21.0-51.0), %Monocytes 5.8 %, Range (0.0-10.0), %Eosinophils 0.1 %, Range (0.0-10.0), %Basophils 0.4 %, Range (0.0-1.0), *#Neutrophils 13.7 - H thou/uL, Range (1.40-6.50), #Lymphocytes 2.0 thou/uL, Range (1.20-3.40), *#Monocytes 1.0 - H thou/uL, Range (0.11-0.59), #Eosinphils 0.0 thou/uL, Range (0.0-0.7), #Basophils 0.1 thou/uL, Range (0.0-0.2). (11:33 [facility]) MICROBIOLOGY: Influenza A&B Ag Screen: [id number] Collection DT: SunSep 06, 2016 10:52, See comment below , @ ER ROOM#: [id number] &a-1R&a+25V*p+0X*v6144H*c202B*c15G*c2P*p-0X&a-25V&a+1R Name: Laurel Cruz : 1945 F71 MedRec: [id number] AcctNum: [id number] Prepared: SunSep 06, 2016 13:50 by Interface Page 14 of 16 pMD [facility] EMERGENCY RECORD Source: Nasal swab Spec Desc: , Influenza A Antigen: NEGATIVE for the , presence of , INFLUENZA A Antigen , Influenza B Antigen: NEGATIVE for the , presence of , INFLUENZA B Antigen , The rapid Flu A&B test can distinguish between influenza A , Influenza A&B Ag Screen See comment below , and B viruses, but it does not differentiate influenza , Influenza A&B Ag Screen See comment below , subtypes. , Influenza A&B Ag Screen See comment below , Influenza A&B Ag Screen See comment below , Influenza A&B Ag Screen See comment below , Influenza A&B Ag Screen See comment below , characteristics of this device with human specimens infected , Influenza A&B Ag Screen See comment below , with the 2008 H1N1 influenza virus have not been , Influenza A&B Ag Screen See comment below , established. For example: this test cannot distinguish , Influenza A&B Ag Screen See comment below , influenza infections caused by novel H1N1 influenza A , Influenza A&B Ag Screen See comment below , viruses versus seasonal influenza A viruses. , Influenza A&B Ag Screen See comment below , , Influenza A&B Ag Screen See comment below , A negative result does not exclude influenza virus , Influenza A&B Ag Screen See comment below , infection; therefore, if more conclusive testing is desired, , Influenza A&B Ag Screen See comment below , follow up confirmatory testing is warranted., Influenza A&B Ag Screen See comment below . (11:33 [facility]) LABORATORY: CK (CPK) Collection DT: SunSep 06, 2016 10:54, CK (CPK) 113 U/L, Range (29-168). (12:05 YAS) Comprehensive Metabolic Panel Collection DT: SunSep 06, 2016 10:54, Critical Call Chemistry [place] [facility] [place] , Refer to Critical Value designated by an *L or *H , Sodium 142 mmol/L, Range (136-145), *Potassium 2.9 - *L mmol/L, Range (3.5-5.1), Critical value!, Chloride 105 mmol/L, Range (98-107), *Carbon Dioxide 22 - L mmol/L, Range (23-31), Anion Gap 18 mmol/L, Range (10-20), BUN (Urea Nitrogen) 13 mg/dL, Range (9.8-20.1), Creatinine 0.72 mg/dL, Range (0.6-1.1), Estimated GFR-MDRD 80 , Reference Range for Estimated GFR: Greater than 90, mL/min/1.73 m2 NOTE: The MDRD equation has not been validated for use, with the &a-1R&a+25V*p+0X*p8927G*c202B*c15G*c2P*p-0X&a-25V&a+1R Name: Laurel Cruz : 1945 F71 MedRec: [id number] AcctNum: [id number] Prepared: SunSep 06, 2016 13:50 by Interface Page 15 of 16 pMD [facility] EMERGENCY RECORD elderly (over 70 years of age), women, patients with, serious comorbid condition or persons with extremes of body size, muscle, mass, or nutritional status. , *Glucose 131 - H mg/dL, Range (80-115), Calcium 9.4 mg/dL, Range (7.8-10.44), Bilirubin, Total 0.4 mg/dL, Range (0.2-1.2), Protein, Total 7.9 g/dL, Range (5.8-8.1), NOTE: Plasma values are generally 0.3 to 0.5 g/dL higher than serum values, due to the presence of fibrinogen. , Albumin 3.5 g/dL, Range (3.4-4.8), *Globulin 4.4 - H g/dL, Range (2.4-3.5), *Alb/Glob Ratio 0.8 - L g/dL, Range (1.2-2.2), Alkaline Phosphatase 119 U/L, Range (40-150), AST (SGOT) 24 U/L, Range (5-34), ALT (SGPT) 20 U/L, Range (0-55). (12:05 YAS) Lee: SHARON=SHANE Perez, Alayna HILL=Danielle Evans=MD Kobi, Rufus JNOL=SHANE Roland, Randa &a-1R&a+25V*p+0X*r6205O*c202B*c15G*c2P*p-0X&a-25V&a+1R Name: Laurel Cruz : 1945 F71 MedRec: [id number] AcctNum: [id number] Prepared: SunSep 06, 2016 13:50 by Interface Page 16 of 16 pMD MTDD
== END 2016-09-06 13:40 | disposition short-term general hospital (02) ==
LOC: NAV ERS 10:16 → EDBD 10:16 → NAV ERS 13:40
DX: J18.9 Pneumonia, unspecified organism (principal); I71.4 Abdominal aortic aneurysm, without rupture; E87.6 Hypokalemia; E78.5 Hyperlipidemia, unspecified; E78.00 Pure hypercholesterolemia, unspecified; I10 Essential (primary) hypertension; Z72.0 Tobacco use
CPT/HCPCS: 36415; 71010; 71275; 80053; 82550; 82553; 83880; 84484; 85025; 85379; 87040; 93005; 94640; 94760; J0456; J0696; J3480; J7050; J7611; J7620